=== PATIENT | female | born 1965 ===

== ENCOUNTER 2017-05-30 12:35 | Emergency (ER) | payer OTHER ==
[2017-05-30 12:46] VITALS: RESP 18; TEMP 98.2; BMI 41.5
--- NOTE | 2017-05-30 13:26 | ED PDOC ---
Arrival/HPI <Rad Ward - Last Filed: 05/30/17 17:54> - General Historian: Patient - History of Present Illness Time/Duration: < week Symptom Onset: Gradual Symptom Course: Unchanged Quality: Stabbing, Throbbing Severity Level: 10 Activities at Onset: Rest Context: Sitting <Rick Bush - Last Filed: 05/30/17 18:03> - General Chief Complaint: Back Pain Time Seen by Provider: 05/30/17 12:39 - History of Present Illness Narrative History of Present Illness (Text): 05/30/17 13:20 This is a 51 year old female with a past medical history of Lupus who comes into [facility] with complaints of chest and back pain since Monday. She states the pain began on Monday while at home resting. She states she came in today due to the worsening of the pain in her back and chest. She rates the pain a 10/10 on admission. She describes the pain as throbbing in nature and it radiates to the right upper quadrant. She took Motrin for the pain but it didn't help with the pain severity. She reports shortness of breath in conjunction with the onset of symptoms. She denies nausea, vomiting, headaches, changes in vision, lightheadedness or dizziness. (Rick Bush) Past Medical History - Provider Review Nursing Documentation Reviewed: Yes - Infectious Disease Hx of Infectious Diseases: None - Cardiac Hx Cardiac Disorders: No - Pulmonary Hx Respiratory Disorders: No - Neurological Hx Neurological Disorder: No - HEENT Hx HEENT Disorder: No - Renal Hx Renal Disorder: No - Endocrine/Metabolic Hx Endocrine Disorders: Yes Hx Systemic Lupus Erythematosus: Yes - Hematological/Oncological Hx Blood Disorders: No - Integumentary Hx Dermatological Disorder: No - Musculoskeletal/Rheumatological Hx Musculoskeletal Disorders: No - Gastrointestinal Hx Gastrointestinal Disorders: No - Genitourinary/Gynecological Hx Genitourinary Disorders: No - Psychiatric Hx Psychophysiologic Disorder: No Hx Substance Use: No - Surgical History Hx Section: Yes (x2) - Anesthesia Hx Anesthesia: Yes Hx Anesthesia Reactions: No <Rick Bush - Last Filed: 05/30/17 18:03> Family/Social History - Physician Review Nursing Documentation Reviewed: Yes Family/Social History: No Known Family HX Smoking Status: Never Smoked Hx Alcohol Use: No Hx Substance Use: No <Rick Bush - Last Filed: 05/30/17 18:03> Allergies/Home Meds <Rad Ward - Last Filed: 05/30/17 17:54> <EleazarRick duckworth - Last Filed: 05/30/17 18:03> Allergies/Adverse Reactions: Allergies No Known Allergies Allergy (Unverified 05/30/17 13:12) Review of Systems - Physician Review All systems were reviewed & negative as marked: Yes - Review of Systems Respiratory: SOB Cardiovascular: Chest Pain Gastrointestinal: Abdominal Pain <Eleazar,[place] - Last Filed: 05/30/17 18:03> Physical Exam Vital Signs Reviewed: Yes Temperature: Afebrile Blood Pressure: Hypertensive Pulse: Tachycardic Respiratory Rate: Normal Appearance: Positive for: Well-Appearing, Non-Toxic, Uncomfortable Pain Distress: None Mental Status: Positive for: Alert and Oriented X 3 - Systems Exam Head: Present: Atraumatic, Normocephalic Pupils: Present: PERRL Extroacular Muscles: Present: EOMI. No: Gaze Palsy Conjunctiva: Present: Normal Neck: Present: Normal Range of Motion. No: JVD Respiratory/Chest: Present: Clear to Auscultation. No: Accessory Muscle Use, Wheezes Cardiovascular: Present: Regular Rate and Rhythm, Normal S1, S2. No: Murmurs, Tachycardic Abdomen: Present: Tenderness, Guarding (RUQ pain upon palpation. Some guarding noted also in the RUQ). No: Hernias Upper Extremity: Present: Normal Inspection, NORMAL PULSES. No: Cyanosis, Edema Lower Extremity: Present: Normal Inspection. No: Edema Neurological: Present: CN II-XII Intact, Speech Normal Skin: Present: Dry, Normal Color. No: Diaphoretic Psychiatric: Present: Alert, Oriented x 3, Normal Insight, Normal Concentration <Eleazar,[place] - Last Filed: 05/30/17 18:03> Vital Signs Temp Pulse Resp BP Pulse Ox 05/30/17 17:00 79 18 134/75 98 05/30/17 15:11 84 18 136/79 97 05/30/17 14:32 89 18 138/89 96 05/30/17 12:45 98.2 F 95 H 18 140/99 H 96 Medical Decision Making <Rad Ward - Last Filed: 05/30/17 17:54> <Rcik Bush - Last Filed: 05/30/17 18:03> ED Course and Treatment: A 51 year old female with chest and back pain. In agreement with resident note, which includes further HPI details. Patient was seen and evaluated with resident , came up with plan and treatment together. (Rad Ward) 05/30/17 13:29 Patient is a 51 year old female comes in with chest and back pain since Monday. Will order labs including U/S(abdomen), CBC, CMP, BNP, U/A, D- dimer. Will give Toradol for pain management. Will reevaluate condition after meds and results from labs return. (Rick Bush) - Lab Interpretations Lab Results: 05/30/17 13:22 05/30/17 14:21 Lab Results 05/30/17 16:00: D-Dimer, Quantitative 0.35 05/30/17 14:21: Sodium 141, Potassium 4.1, Chloride 104, Carbon Dioxide 24, Anion Gap 17, BUN 11, Creatinine 0.8, Est GFR ( Amer) > 60, Est GFR (Non- Af Amer) > 60, Random Glucose 93, Calcium 9.5, Total Bilirubin 0.8, AST 22, ALT 34, Alkaline Phosphatase 112, NT-Pro-B Natriuret Pep 41.1, Total Protein 7.8, Albumin 4.3, Globulin 3.5, Albumin/Globulin Ratio 1.2, Lipase 55 05/30/17 14:00: Urine Color Light yellow, Urine Appearance Clear, Urine pH 6.0, Ur Specific [place] <= 1.005, Urine Protein Negative, Urine Glucose (UA) Negative, Urine Ketones Negative, Urine Blood Negative, Urine Nitrate Negative, Urine Bilirubin Negative, Urine Urobilinogen 0.2, Ur Leukocyte Esterase Negative 05/30/17 13:22: WBC 7.6, RBC 4.93, Hgb 14.5, Hct 43.1, MCV 87.4, MCH 29.4, MCHC 33.6, RDW 14.3, Plt Count 195, MPV 11.3 H, Gran % 64.7, Lymph % (Auto) 28.3, [place] % (Auto) 5.4, Eos % (Auto) 1.3 L, Baso % (Auto) 0.3, Gran # 4.88, Lymph # 2.1, [place] # 0.4, Eos # 0.1, Baso # 0.02 - RAD Interpretation Radiology Orders: 05/30/17 13:12 ABDOMEN COMPLETE [US] Stat 05/30/17 16:47 CHEST TWO VIEWS (PA/LAT) [RAD] Stat - Medication Orders Current Medication Orders: Discontinued Medications Iohexol (Omnipaque 350 100 Ml) Confirm Administered Dose 350 mg .ROUTE .STK-MED ONE Stop: 05/30/17 16:21 Ketorolac Tromethamine (Toradol) 30 mg IVP STAT STA Stop: 05/30/17 13:16 Last Admin: 05/30/17 14:21 Dose: 30 mg - PA / EDUCATIONAL AID / Resident Statement MD/DO has reviewed & agrees with the documentation as recorded. MD/DO has examined the patient and agrees with the treatment plan. - Scribe Statement The provider has reviewed the documentation as recorded by the Scribe <Rad Ward - Last Filed: 05/30/17 17:54> <Rick Bush - Last Filed: 05/30/17 18:03> - Scribe Statement Luz Maria Mehta Provider Scribe Attestation: All medical record entries made by the Scribe were at my direction and personally dictated by me. I have reviewed the chart and agree that the record accurately reflects my personal performance of the history, physical exam, medical decision making, and the department course for this patient. I have also personally directed, reviewed, and agree with the discharge instructions and disposition. (Rad Ward) Disposition/Present on Arrival - Present on Arrival Any Indicators Present on Arrival: No - Disposition Have Diagnosis and Disposition been Completed?: Yes Disposition Time: 18:00 Patient Plan: Discharge <Rad Ward - Last Filed: 05/30/17 17:54> - Present on Arrival History of DVT/PE: No History of Uncontrolled Diabetes: No Urinary Catheter: No History of Decub. Ulcer: No History Surgical Site Infection Following: None <Rick Bush - Last Filed: 05/30/17 18:03> - Disposition Diagnosis: Right flank pain Disposition: HOME/ ROUTINE Patient Problems: Current Active Problems Problem Status Onset Right flank pain Acute Condition: GOOD Discharge Instructions (ExitCare): Flank Pain (ED) Additional Instructions: Take the medications as prescribed. Follow up with Dr. Fields. Return to the emergency department if any new concerning symptoms. Prescriptions: Naproxen [Naprosyn] 500 mg PO BID PRN #20 tab PRN Reason: Pain Referrals: Aurelia Fields DO [Primary Care Provider] - Follow up with primary Forms: [employer] (Danish)
[2017-05-30 13:27] LABS: ADD MANUAL DIFF? NO
[2017-05-30 13:31] LABS: BASO # 0.02 K/mm3 (0.0-2.0); BASO % 0.3 % (0.0-3.0); EOS # 0.1 (0.0-0.7); EOS % 1.3 % (1.5-5.0); GRAN # 4.88 (1.4-6.5); GRAN % 64.7 % (50.0-68.0); HEMATOCRIT 43.1 % (36.0-48.0); LYMPH # 2.1 (1.2-3.4); LYMPH % 28.3 % (22.0-35.0); MEAN CELL VOLUME 87.4 fL (80.0-105.0); MEAN CORPUSCULAR HEMOGLOBIN 29.4 pg (25.0-35.0); MEAN CORPUSCULAR HGB CONC 33.6 g/dl (31.0-37.0); MEAN PLATELET VOLUME 11.3 fl (7.0-11.0); MONO # 0.4 (0.1-0.6); MONO % 5.4 % (1.0-6.0); PLATELET COUNT 195 10^3/uL (120.0-450.0); RED CELL DISTRIBUTION WIDTH 14.3 % (11.5-14.5); WHITE BLOOD COUNT 7.6 10^3/ul (4.5-11.0)
[2017-05-30 14:14] LABS: URINE APPEARANCE CLEAR (CLEAR); URINE BILIRUBIN NEGATIVE (NEGATIVE); URINE BLOOD NEGATIVE (NEGATIVE); URINE COLOR LIGHT YELLOW (YELLOW); URINE GLUCOSE (UA) NEGATIVE (NEGATIVE); URINE KETONE NEGATIVE (NEGATIVE); URINE LEUKOCYTE ESTERASE NEGATIVE Leu/uL (NEGATIVE); URINE PROTEIN NEGATIVE mg/dL (<30 mg/dL); URINE UROBILINOGEN 0.2 E.U./dL (<1 E.U./dL)
[2017-05-30 14:47] LABS: ALB/GLOB RATIO 1.2 (1.1-1.8); ALKALINE PHOSPHATASE 112 U/L (38-133); ALT/SGPT 34 U/L (7-56); AST/SGOT 22 U/L (15-39); BILIRUBIN,TOTAL 0.8 mg/dL (0.2-1.3); BLOOD UREA NITROGEN 11 mg/dL (7-21); CALCIUM 9.5 mg/dL (8.4-10.5); CARBON DIOXIDE 24 mmol/L (21-33); CHLORIDE 104 mmol/L (98-107); GFR AFRICAN-AMERICAN > 60; GLUCOSE,RANDOM 93 mg/dL (70-110); LIPASE 55 U/L (23-300); POTASSIUM 4.1 mmol/L (3.6-5.0); SODIUM 141 mmol/L (132-148); TOTAL PROTEIN 7.8 g/dL (5.8-8.3)
--- NOTE | 2017-05-30 15:33 | US ---
HISTORY: RUQ pain - r/o cholecystitis COMPARISON: None. TECHNIQUE: Sonographic evaluation of the abdomen. FINDINGS: LIVER: Measures 17.9 cm. Increased echogenicity of the liver parenchyma is identified diffusely compatible with diffuse fatty infiltration though other etiologies are possible. . No mass. No intrahepatic bile duct dilatation. GALLBLADDER: Unremarkable. No gallstones. COMMON BILE DUCT: Measures 6.4 mm. No stones. No dilatation. PANCREAS: Unremarkable as visualized. No mass. No ductal dilatation. RIGHT KIDNEY: Measures 12.0cm. Normal echogenicity. No calculus, mass, or hydronephrosis. LEFT KIDNEY: Measures 10.6cm. Normal echogenicity. No calculus, mass, or hydronephrosis. SPLEEN: Normal in size and contour. No mass. AORTA: No aneurysmal dilatation. IVC: Unremarkable. OTHER FINDINGS: None. IMPRESSION: Diffuse fatty infiltration liver is suggested with remainder the examination remarkable only for upper limits normal caliber CBD at 6.4 mm. No demonstrated choledocholithiasis. Gallbladder appears unremarkable. .
[2017-05-30] MEDS ORDERED: Iohexol 350 MG/100 ML VIAL ONE (16:20)
[2017-05-30 17:15] VITALS: BP 134/75; PULSE 79; O2SAT 98
--- NOTE | 2017-05-30 17:45 | RAD ---
HISTORY: R side pleuritic pain COMPARISON: None available. TECHNIQUE: Chest PA and lateral FINDINGS: Examination limited by habitus. LUNGS: No focal consolidation. Please note that chest x-ray has limited sensitivity for the detection of pulmonary masses. PLEURA: No significant pleural effusion identified. No definite pneumothorax . CARDIOVASCULAR: The cardiomediastinal silhouette appears within normal limits of size. OSSEOUS STRUCTURES: Degenerative changes of the spine. VISUALIZED UPPER ABDOMEN: Unremarkable. OTHER FINDINGS: None. IMPRESSION: No focal consolidation, significant pleural effusion, or definite pneumothorax identified.
--- NOTE | 2017-05-31 07:56 | CARD ---
APPROVED REPORT EKG Measurement Heart [id number] <Conclusion> Normal sinus rhythm Normal ECG
== END 2017-05-30 18:08 | disposition home or self-care (01) ==
LOC: ED 12:35
DX: R10.9 Unspecified abdominal pain (principal)
CPT/HCPCS: 71020; 76700; 80053; 81003; 83690; 83880; 85025; 85378; 93005; 96374; 99285; J1885